=== PATIENT | female | born 1995 | race African-American/Black ===

== ENCOUNTER 2017-06-05 14:47 | Emergency (ER) | payer BC ==
[2017-06-05] MEDS: ACETAMINOPHEN 325 MG TABLET. PO ×2 (15:49)
[2017-06-05 16:02] LABS: BILIRUBIN,URINE NEGATIVE (NEG); CLARITY,URINE CLEAR; COLOR,URINE YELLOW; GLUCOSE,URINE NEGATIVE (NEG); NITRITE,URINE NEGATIVE (NEG); PROTEIN,URINE NEGATIVE (NEG-TRACE); UROBILINOGEN,URINE 0.2 mg/dL (0.2 mg/dL)
[2017-06-05 16:07] LABS: NEG OBC UR NEG; POS OBC UR POS; U PREG PATIENT POSITIVE (NEG)
[2017-06-05 16:09] LABS: BACTERIA,URINE MANY /HPF (0-FEW); RBC,URINE 0 /HPF (0-2); SQUAMOUS EPITHELIAL CELL,UR MANY /LPF; WBC,URINE 0 /HPF (0-4)
== END 2017-06-05 16:35 | disposition home or self-care (01) ==
LOC: ER 14:47
DX: O26.892 Other specified pregnancy related conditions, second trimester (principal); M54.5 Low back pain; Z3A.19 19 weeks gestation of pregnancy
CPT/HCPCS: 81001; 81025; 87086; 99284

== ENCOUNTER → 2017-06-08 | Outpatient (CLI) | payer BC | END | disposition home or self-care (01) | LOC: KCIC US 09:52 | DX: O26.892 Other specified pregnancy related conditions, second trimester (principal); N63.10 Unspecified lump in the right breast, unspecified quadrant; N64.4 Mastodynia; Z3A.17 17 weeks gestation of pregnancy | CPT/HCPCS: 76641 ==